=== PATIENT | male | born 1965 | race Caucasian/White ===

== ENCOUNTER 2016-05-09 14:51 | Emergency (ER) | payer BC, OTHER ==
[~2016-05-09] VITALS: Ht 175.3 cm; Wt 95.0 kg
[2016-05-09 14:55] VITALS: BP 122/80; PULSE 95; RESP 16; TEMP 98.2; O2SAT 97
--- NOTE | 2016-05-09 15:45 | PD ---
HPI Chief Complaint: Numbness/Tingling Time Seen by Provider: 15:22 Travel History International Travel<30 days: No Contact w/Intl Traveler<30days: No Traveled to known affect area: No History of Present Illness HPI This 51-year-old male says that couple weeks ago he started having some numbness in his left hand. He had pins and needles which would come and go. In his right hand started having these symptoms. He is now noted the pins and needles in his toes. He has not noted any muscular weakness. He has not noted any pattern to this pain it does not seem particularly worse at night or during the day. He does not have a history of diabetes. He has not had any headache. [facility] Past Medical History Medical History: Denies Significant Hx Past Surgical History Surgical History: No Previous Surgery Social History Alcohol Use: Yes () Tobacco Use: No Allergies-Medications (Allergen,Severity, Reaction): Coded Allergies: No Known Allergies (Verified , 05/09/16) Reported Meds & Prescriptions Reported Meds & Active Scripts Active No Active Prescriptions or Reported Medications Review of Systems General / Constitutional: No: Fever, Chills Eyes: No: Diploplia, Blurred Vision HENT: No: Headaches, Vertigo Cardiovascular: No: Chest Pain or Discomfort, Palpitations Respiratory: No: Cough, Shortness of Breath Gastrointestinal: No: Nausea, Vomiting Genitourinary: No: Urgency, Frequency Musculoskeletal: No: Myalgias, Arthralgias Skin: No Rash, No Itching Neurologic: Positive: Sensory Disturbance, No: Weakness Psychiatric: No: Anxiety, Depression Physical Exam Narrative GENERAL: Well-developed male SKIN: Warm and dry. HEAD: Atraumatic. Normocephalic. EYES: Pupils equal and round. No scleral icterus. No injection or drainage. ENT: No nasal bleeding or discharge. Mucous membranes pink and moist. NECK: Trachea midline. No JVD. CARDIOVASCULAR: Regular rate and rhythm. No murmur appreciated. RESPIRATORY: No accessory muscle use. Clear to auscultation. Breath sounds equal bilaterally. GASTROINTESTINAL: Abdomen soft, non-tender, nondistended. Hepatic and splenic margins not palpable. MUSCULOSKELETAL: No obvious deformities. No clubbing. No cyanosis. No edema. NEUROLOGICAL: Awake and alert. No obvious cranial nerve deficits. Motor grossly within normal limits. Normal speech. On sensory testing he says he has numbness in fingers and toes. There are good pulses and good perfusion of the extremities. PSYCHIATRIC: Appropriate mood and affect; insight and judgment normal. Data Data Last Documented VS Vital Signs Date Time Temp Pulse Resp B/P Pulse Ox O2 Delivery O2 Flow Rate FiO2 05/09/16 14:55 98.2 95 16 122/80 97 Orders Complete Blood Count With Diff (05/09/16 15:22) Basic Metabolic Panel (Bmp) (05/09/16 15:22) MDM Medical Decision Making Medical Screen Exam Complete: Yes Emergency Medical Condition: Yes Medical Record Reviewed: Yes Differential Diagnosis Differential includes neuropathy, paresthesias, Narrative Course Distribution of the symptoms is not suggestive of [employer] disease. I have ordered blood work to assess for possible diabetes in the event this could be neuropathy Scripts No Active Prescriptions or Reported Meds Arnulfo Luu MD May 09, 2016 15:45
[2016-05-09 16:03] LABS: BICARBONATE 26.3 MEQ/L (21.0-32.0); POTASSIUM 5.4 MEQ/L (3.5-5.1)
[2016-05-09 16:17] LABS: AUTOMATED NEUTROPHIL # 4.7 TH/MM3 (1.8-7.7); BASOPHIL % 0.5 % (0.0-2.0); EOSINOPHIL # 0.3 TH/MM3 (0-0.4); EOSINOPHIL % 3.6 % (0.0-4.0); HEMATOCRIT 49.6 % (39.0-51.0); HEMO FLAGS DIFF FINAL; LYMPH % 21.3 % (9.0-44.0); LYMPHOCYTE # 1.6 TH/MM3 (1.0-4.8); MEAN CELL VOLUME 94.7 FL (80.0-100.0); MEAN CORPUSCULAR HEMOGLOBIN 31.7 PG (27.0-34.0); MEAN CORPUSCULAR HGB CONC 33.5 % (32.0-36.0); NEUT % 64.6 % (16.0-70.0); PLATELET COUNT 177 TH/MM3 (150-450); RED BLOOD COUNT 5.24 MIL/MM3 (4.50-5.90); RED CELL DISTRIBUTION WIDTH 12.9 % (11.6-17.2); WHITE BLOOD COUNT 7.3 TH/MM3 (4.0-11.0)
--- NOTE | 2016-05-09 16:49 | PD ---
Data Data Last Documented VS Vital Signs Date Time Temp Pulse Resp B/P Pulse Ox O2 Delivery O2 Flow Rate FiO2 05/09/16 17:23 88 16 126/65 96 05/09/16 14:55 98.2 Orders Complete Blood Count With Diff (05/09/16 15:22) Basic Metabolic Panel (Bmp) (05/09/16 15:22) Electrocardiogram (05/09/16 ) Labs Laboratory Tests Test 05/09/16 15:40 White Blood Count 7.3 TH/MM3 Red Blood Count 5.24 MIL/MM3 Hemoglobin 16.6 GM/DL Hematocrit 49.6 % Mean Corpuscular Volume 94.7 FL Mean Corpuscular Hemoglobin 31.7 PG Mean Corpuscular Hemoglobin 33.5 % Concent Red Cell Distribution Width 12.9 % Platelet Count 177 TH/MM3 Mean Platelet Volume 7.9 FL Neutrophils (%) (Auto) 64.6 % Lymphocytes (%) (Auto) 21.3 % Monocytes (%) (Auto) 10.0 % Eosinophils (%) (Auto) 3.6 % Basophils (%) (Auto) 0.5 % Neutrophils # (Auto) 4.7 TH/MM3 Lymphocytes # (Auto) 1.6 TH/MM3 Monocytes # (Auto) 0.7 TH/MM3 Eosinophils # (Auto) 0.3 TH/MM3 Basophils # (Auto) 0.0 TH/MM3 CBC Comment DIFF FINAL Differential Comment Sodium Level 140 MEQ/L Potassium Level 5.4 MEQ/L Chloride Level 104 MEQ/L Carbon Dioxide Level 26.3 MEQ/L Anion Gap 10 MEQ/L Blood Urea Nitrogen 14 MG/DL Creatinine 1.10 MG/DL Estimat Glomerular Filtration 71 ML/MIN Rate Random Glucose 140 MG/DL Calcium Level 8.7 MG/DL [facility] Supervised Visit with SHA: No Narrative Course Patient care assumed from Dr. Evans at 1600. Patient is 51 year old male presents to the ER for evaluation for left arm tingling and minimal RLE tingling. No weakness by my physical exam nor Dr. Luu's. I agree with Dr. Luu's assessment that patient is not having TIA nor CVA. Patient also concerned for SD. EKG obtained and is reassuring. He is stable for discharge and recommend follow up with PCP. Basic labs reassuring. Diagnosis Primary Impression: Arm paresthesia, left Med/Other Pt SpecificInfo: Prescription(s) given Scripts No Active Prescriptions or Reported Meds Disposition: 01 DISCHARGE HOME Condition: Davie Jimenez MD May 09, 2016 16:48
[2016-05-09 17:23] VITALS: BP 126/65
--- NOTE | 2016-05-10 10:18 | EKG ---
Date Performed: 05/09/2016 Time Performed: 17:04:08 PTAGE: 51 years EKG: Sinus rhythm Normal ECG based on available leads NO PREVIOUS TRACING DOCTOR: Jon Davidson Interpretating Date/Time 05/10/2016 10:15:57
== END 2016-05-09 17:27 | disposition home or self-care (01) ==
LOC: PHED 14:51
DX: R20.9 Unspecified disturbances of skin sensation (principal); F10.20 Alcohol dependence, uncomplicated
CPT/HCPCS: 80048; 85025; 93005